=== PATIENT | female | born 1990 | race Two or more races ===

== ENCOUNTER 2024-04-14 15:45 | Emergency (ER) | payer MEDICAID, SELFPAY ==
[2024-04-14 16:36] VITALS: BP 124/76; PULSE 134; RESP 18; TEMP 39.5; O2SAT 97; BMI 43.4
[2024-04-14 16:59] VITALS: TEMP 39.5
[2024-04-14] MEDS: ACETAMINOPHEN 500 MG TABLET 1000 MG PO (16:59)
--- NOTE | 2024-04-14 16:59 | PD.EDURI ---
Upper Respiratory Inf. RME/HPI General Chief Complaint: Flu Like Symptoms Stated Complaint: fever, not eating , cough, drowsy/lethargic Time Seen by Provider: 04/14/24 15:51 Arrival date/time: 04/14/24 15:45 34-year-old female presents emergency department complains of cough, congestion, body aches and fever patient for symptoms ongoing for last few days there are no other associated symptoms or aggravating factors no other modifying factors, patient denies taking medication before coming to ER today Limitations: no limitations Related Data Previous Rx's ?Medication ?Instructions ?Recorded cyclobenzaprine 10 mg tablet 10 mg PO HS PRN muscle spasm #10 01/30/22 tabs ibuprofen 600 mg tablet 600 mg PO TID PRN pain #30 tabs 01/30/22 cyclobenzaprine 5 mg tablet 5 mg PO TID PRN muscle spasm #30 11/16/22 tabs acetaminophen 500 mg capsule 1,000 mg (2 x 500 mg) PO Q8HR PRN 04/14/24 pain #60 caps benzonatate 100 mg capsule 100 mg PO TID #14 caps 04/14/24 benzonatate 100 mg capsule 100 mg PO TID #14 caps 04/14/24 ibuprofen 800 mg tablet 800 mg PO TID PRN pain #30 tabs 04/14/24 Allergies Allergy/AdvReac Type Severity Reaction Status Date / Time Fish Containing Products Allergy Severe Anaphylaxis Verified 04/14/24 15:46 Review of Systems Review of Systems Systems Reviewed: All systems reviewed, normal except as documented Constitutional Constitutional: Reports system reviewed and no additional complaints, except as documented, Reports body ache(s), Reports chills, Reports fever(s) and Reports headache(s) Eyes Eyes: Reports system reviewed and no additional complaints, except as documented and Denies blurry vision ENT Ears, Nose, Mouth, and Throat: Reports system reviewed and no additional complaints, except as documented, Reports headache(s), Denies nasal congestion, Reports nasal discharge and Reports sore throat Cardiovascular Cardiovascular: Reports system reviewed and no additional complaints, except as documented, Denies chest pain and Denies dyspnea Respiratory Respiratory: Reports system reviewed and no additional complaints, except as documented, Denies chest congestion, Denies cough and Denies dyspnea Gastrointestinal Gastrointestinal: Reports system reviewed and no additional complaints, except as documented, Denies abdominal pain, Denies hematochezia, Denies loose stools, Reports nausea and Reports vomiting Integumentary/Breasts Skin/Breast: Reports system reviewed and no additional complaints, except as documented and Denies rash Neurologic Neurologic: Reports system reviewed and no additional complaints, except as documented, Reports as per HPI and Reports headache(s) Past Medical History Social History SMOKING STATUS: Current every day smoker ED Exam General Limitations: Present no limitations General appearance: Present alert and in no apparent distress Head Head exam: Present atraumatic Eye Eye exam: Present normal appearance, PERRL and EOMI ENT ENT exam: Present normal exam, normal oropharynx and mucous membranes moist Neck Neck exam: Present normal inspection, full ROM and trachea midline Chest Chest inspection: Present normal inspection and symmetric chest wall rise Respiratory Respiratory exam: Present normal lung sounds bilaterally Cardiovascular Cardiovascular exam: Present regular rate, normal rhythm and normal heart sounds Abdominal Exam Abdominal exam: Present soft and normal bowel sounds Extremities Exam Extremities exam: Present normal inspection and full ROM Back Exam Back exam: Present normal inspection and full ROM Neurological Exam Neurological exam: Present alert, oriented X3 and CN II-XII intact Psychiatric Psychiatric exam: Present normal affect and normal mood Skin Skin exam: Present warm, dry, intact and normal color Course Quality Measures none Orders Category Date Time Status Bedside Influenza A&B Antigen Test NOW Care 04/14/24 16:41 Completed Acetaminophen Tab [Tylenol ES Tab] Med 04/14/24 16:41 Discontinued 1,000 mg PO X1 ONE Ibuprofen Tab [Motrin Tab] Med 04/14/24 16:41 Discontinued 800 mg PO X1 ONE Vital Signs Vital signs: Vital Signs Temperature 103.1 F H 04/14/24 16:36 Pulse Rate 134 H 04/14/24 16:36 Respiratory Rate 18 04/14/24 16:36 Blood Pressure 124/76 04/14/24 16:36 Pulse Oximetry (%) 97 04/14/24 16:36 Oxygen Delivery Method Room Air 04/14/24 16:36 O2 saturation 97% room air wnl Upper Respiratory Infection MDM Narrative MDM Narrative:: 34-year-old female presents emergency department complains of cough, congestion, body aches and fever patient for symptoms ongoing for last few days there are no other associated symptoms or aggravating factors no other modifying factors, patient denies taking medication before coming to ER today On exam patient does not appear ill or toxic patient reports no significant medical problems patient reports not Patient symptoms highly consistent with viral illness I suspect patient has flu Patient checked for influenza Patient tested positive for influenza Patient discharged home in no distress to follow-up with primary care doctor in the next 24 to 48 hours and for any worsening symptoms to return to the ER immediately Patient data External records reviewed:: [facility] previous records Clinical information provided by:: patient Social determinants that could affect healthcare access:: none Patient has the following chronic illnesses:: None How is presenting disease/condition affected by chronic disease/condition?: no chronic disease Evaluation data The following diagnostics were reviewed and interpreted by me:: lab results Lab and/or radiology exams considered but not ordered:: Patient checked for flu Interpretation Summary: Came back positive Medications / Prescriptions Medications or Prescriptions considered but not ordered:: Given Medication administrations:: Medication Administration History Discontinued Medications Acetaminophen (Acetaminophen 500 Mg Tablet) 1,000 mg PO X1 ONE Stop: 04/14/24 16:42 Last Admin: 04/14/24 16:59 Dose: 1,000 mg Documented By: Ibuprofen (Ibuprofen Tab 400 Mg Tablet) 800 mg PO X1 ONE Stop: 04/14/24 16:42 Last Admin: 04/14/24 17:00 Dose: 800 mg Documented By: Given Consultations Consultation(s) initiated? (list below): No Diagnosis Upper Respiratory Differential Diagnosis: upper respiratory infection, influenza and pharyngitis Most likely diagnosis given after review of the tests above:: Viral illness Admission Indicated Admission indicated?: not indicated Admission Request Was there a request for admission?: No Disposition Plan Disposition Plan: Discharge Discharge Attestation Discharge Attestation: The patient and all family members were given an opportunity to ask questions and understood the discharge instructions. Discharge instructions specifically effects, indications for sooner follow up or return to the emergency department, and the expected course of current diagnosis. Patient condition: Stable Discharge Plan Plan Patient Disposition: HOME (Self Care) Disposition Comment: Stable Prescriptions/Referrals Prescriptions/Med Rec: New ibuprofen 800 mg tablet 800 mg PO TID PRN (Reason: pain) Qty: 30 0RF benzonatate 100 mg capsule 100 mg PO TID Qty: 14 0RF acetaminophen 500 mg capsule 1,000 mg PO Q8HR PRN (Reason: pain) Qty: 60 0RF benzonatate 100 mg capsule 100 mg PO TID Qty: 14 0RF No Action cyclobenzaprine 10 mg tablet 10 mg PO HS PRN (Reason: muscle spasm) Qty: 10 0RF ibuprofen 600 mg tablet 600 mg PO TID PRN (Reason: pain) Qty: 30 0RF cyclobenzaprine 5 mg tablet 5 mg PO TID PRN (Reason: muscle spasm) Qty: 30 0RF Referrals: Brayan Peoples MD [Primary Care Provider] - In 1 week Problem List Clinical Impression: Influenza Patient/Caregiver Discharge Instructions Education Materials: The Flu (Influenza) Additional Instructions: Please follow up with your primary care doctor in the next 24-48hrs for any worsening symptoms return here immediately Print Language: Mexican Stand Alone Forms: Kika Award Info., Work/School Release, Patient Portal Info Letter PA/ATG ARCHITECT Supervising Physician PA/ATG ARCHITECT Supervising Physician: Dr. Peoples
[2024-04-14 17:00] VITALS: TEMP 39.5
[2024-04-14] MEDS: IBUPROFEN TAB 400 MG TABLET 800 MG PO (17:00)
== END 2024-04-14 17:06 | disposition home or self-care (01) ==
PROVIDERS: Emergency Provider Emergency Medicine; PCP Internal Medicine Rheumatology; Referring Provider Internal Medicine Rheumatology
DX: J11.1 Influenza due to unidentified influenza virus with other respiratory manifestations (principal); F17.290 Nicotine dependence, other tobacco product, uncomplicated
CPT/HCPCS: 87400; 99283; A9270